=== PATIENT | male | born 1960 | race Two or more races ===

== ENCOUNTER 2022-08-15 11:41 | Inpatient (IN) | payer MEDICAID ==
[2022-08-15] VITALS (10 sets, daily range): BP systolic 98–117; BP diastolic 58–79
[~2022-08-15] VITALS: Ht 162.6 cm; Wt 61.0 kg
[2022-08-15] MEDS ORDERED: ASPIRIN 325 MG TABLET PO ONE (12:00)
[2022-08-15] MEDS ORDERED: MIDAZOLAM HCL 2 MG/2 ML VIAL IVP ONE (12:00)
[2022-08-15] MEDS ORDERED: FentaNYL CITRATE PF 100 MCG/2 ML VIAL IVP ONE (12:00)
[2022-08-15 12:15] LABS: BASOPHILS % (AUTO) 0.4 % (0.0-2.0); EOSINOPHILS % (AUTO) 0.1 % (1.0-6.0); HEMATOCRIT 44.4 % (41-53); HEMOGLOBIN 14.4 g/dL (13.5-17.5); LYMPHOCYTES # (AUTO) 1.3 K/uL (1.0-4.8); LYMPHOCYTES % (AUTO) 10.1 % (22.0-44.0); MEAN CORPUSCULAR HEMOGLOBIN 32.6 pg (26.0-34.0); MEAN CORPUSCULAR HGB CONC 32.5 G/dL (31.0-37.0); MEAN CORPUSCULAR VOLUME 101 fL (80-100); MONOCYTES # (AUTO) 1.1 K/uL (0.1-1.0); MONOCYTES % (AUTO) 8.8 % (2.0-9.0); NEUTROPHILS # (AUTO) 10.3 K/uL (1.8-7.7); NEUTROPHILS % (AUTO) 80.6 % (40.0-70.0); PLATELET COUNT (AUTO) 160 K/uL (150-450); RED BLOOD CELL COUNT(AUTO) 4.42 MIL/uL (4.50-5.90); RED CELL DISTRIBUTION WIDTH 12.7 % (11.5-14.5)
[2022-08-15] MEDS ORDERED: SODIUM CHLORIDE 0.9% 1,000 ML IV ONE (12:15)
[2022-08-15 12:25] LABS: CALCIUM, TOTAL 9.9 mg/dL (8.8-10.5); CREATININE 1.59 mg/dL (0.60-1.30); POTASSIUM 4.5 mmol/L (3.5-5.1)
[2022-08-15 12:25] LABS: COVID AG,FIA SOURCE NASOPHARYNGEAL
[2022-08-15 12:32] LABS: D-DIMER 1.17 mg/L FEU (0.00-0.50); INR 1.1 (0.9-1.1); PROTHROMBIN TIME 11.4 SEC (9.4-11.6)
[2022-08-15 12:51] LABS: ALBUMIN 3.2 g/dL (3.4-5.0); TOTAL PROTEIN, SERUM 8.9 g/dL (6.4-8.2)
[2022-08-15] MEDS ORDERED: HEPARIN SODIUM 25000 UNITS/D5W 250 ML IV PRN (13:00)
[2022-08-15] MEDS ORDERED: HEPARIN SODIUM,PORCINE 5,000 UNITS/ML VIAL IVP PRN ×3 (13:00→15:45)
[2022-08-15] MEDS ORDERED: MORPHINE SULFATE 2 MG/ML SYRINGE IVP PRN (13:15)
[2022-08-15] MEDS ORDERED: DEXTROSE 50%-WATER 25 GM/50 ML SYRINGE IVP PRN (13:15)
[2022-08-15] MEDS ORDERED: ONDANSETRON HCL 4 MG/2 ML VIAL IVP PRN (13:15)
[2022-08-15] MEDS ORDERED: ALBUTEROL SULFATE 2.5 MG/0.5 ML NEB SOLUTION NEB PRN (13:15)
[2022-08-15] MEDS ORDERED: BISACODYL 10 MG RECTAL RECTAL SUPPOSITORY PR PRN (13:15)
[2022-08-15] MEDS ORDERED: NITROGLYCERIN 0.4 MG SUBLINGUAL TABLET #25 SL PRN (13:15)
[2022-08-15] MEDS ORDERED: IPRATROPIUM BROMIDE 0.5 MG/2.5 ML NEB SOLUTION NEB PRN (13:15)
[2022-08-15] MEDS ORDERED: HEPARIN SODIUM,PORCINE 5,000 UNITS/ML VIAL IVP ONE (13:15)
[2022-08-15] MEDS ORDERED: DOCUSATE SODIUM 100 MG CAPSULE PO PRN (13:15)
[2022-08-15] MEDS ORDERED: SODIUM CHLORIDE 0.9% 0 ML ONE (13:18)
[2022-08-15] MEDS ORDERED: IOHEXOL 300 MG/ML 100 ML VIAL ONE ×2 (13:18→13:37)
[2022-08-15] MEDS ORDERED: LIDOCAINE/PF 1% 30 ML VIAL ONE (13:37)
[2022-08-15] MEDS ORDERED: HEPARIN SODIUM 1000 UNITS/NS 1,000 ML ONE (13:37)
[2022-08-15] MEDS ORDERED: NITROGLYCERIN 50 MG/D5% WATER 250 ML ONE (13:37)
[2022-08-15] MEDS ORDERED: SODIUM BICARBONATE 50 MEQ/50 ML VIAL ONE (13:37)
[2022-08-15] MEDS ORDERED: VERAPAMIL HCL 2.5 MG/ML 2 ML VIAL ONE (13:37)
[2022-08-15] MEDS ORDERED: PHENYLEPHRINE HCL 10 MG/ML VIAL IVP ONE (14:04)
[2022-08-15] MEDS ORDERED: HEPARIN SODIUM,PORCINE 1,000 UNITS/ML 10 ML VIAL IVP ONE (14:04)
[2022-08-15] MEDS ORDERED: 0.9% SODIUM CHLORIDE 10 ML VIAL IVP ONE (14:04)
[2022-08-15 14:11] LABS: HEMOGLOBIN A1C 9.4 % (3.8-5.6)
[2022-08-15 14:13] LABS: FREE T4 (FREE THYROXINE) 1.67 ng/dL (0.76-1.46); THYROID STIMULATING HORMONE 2.84 uIU/mL (0.36-3.74)
[2022-08-15] MEDS ORDERED: LIDOCAINE 1% 30 ML/SOD BICARB 8.4% 4 ML SQ ONE (14:15)
[2022-08-15] MEDS ORDERED: SODIUM CHLORIDE 0.9% 500 ML IV ONE (14:15)
[2022-08-15] MEDS ORDERED: IOHEXOL 300 MG/ML 100 ML VIAL IARTER ONE (14:15)
[2022-08-15] MEDS ORDERED: HEPARIN SODIUM,PORCINE 1,000 UNITS/ML 10 ML VIAL IARTER ONE (14:15)
[2022-08-15] MEDS ORDERED: HEPARIN SODIUM 1000 UNITS/NS 1,000 ML IARTER ONE (14:15)
[2022-08-15] MEDS ORDERED: NITROGLYCERIN/D5W 50 MG/250 ML IV BOTTLE ICOR ONE (14:15)
[2022-08-15] MEDS ORDERED: PHENYLEPHRINE 200 MG/D5%-WATER 250 ML IV ONE (14:26)
[2022-08-15] MEDS: VERAPAMIL HCL 2.5 MG/ML 2 ML VIAL IARTER ONE ×2 (14:43→14:49)
[2022-08-15] MEDS ORDERED: HEPARIN SODIUM 1000 UNITS/NS 500 ML ONE (14:57)
[2022-08-15] MEDS ORDERED: VERAPAMIL HCL 2.5 MG/ML 2 ML VIAL ICOR ONE (15:00)
[2022-08-15] MEDS ORDERED: EPTIFIBATIDE 2 MG/ML 10 ML VIAL IVP ONE (15:45)
[2022-08-15] MEDS: EPTIFIBATIDE 75 MG/ISO-OSM 100 ML IV PRN (17:23)
[2022-08-15] MEDS: HEPARIN SODIUM 25000 UNITS/D5W 250 ML IV PRN (17:26)
[2022-08-15] MEDS: ATORVASTATIN CALCIUM 40 MG TABLET PO SCH (17:53)
[2022-08-15] MEDS: PANTOPRAZOLE SODIUM 40 MG DR TABLET PO SCH (17:54)
[2022-08-15] MEDS: INSULIN LISPRO 100 UNITS/ML SQ PRN ×2 (18:02→21:43)
[2022-08-15] MEDS: ACETAMINOPHEN 325 MG TABLET PO PRN (21:41)
[2022-08-15 22:12] LABS: GLUCOSE,POINT OF CARE 193 MG/DL (70-110)
[2022-08-16] VITALS (8 sets, daily range): BP systolic 92–137; BP diastolic 52–89
[2022-08-16] MEDS: HEPARIN SODIUM,PORCINE 5,000 UNITS/ML VIAL IVP PRN ×2 (00:11→07:54)
[2022-08-16] MEDS ORDERED: PHENYLEPHRINE 200 MG/D5%-WATER 250 ML IV PRN (01:45)
[2022-08-16 05:26] LABS: GLUCOSE,POINT OF CARE 174 MG/DL (70-110)
[2022-08-16 06:21] LABS: APPEARANCE,URINE CLEAR (CLEAR); BILIRUBIN,URINE NEGATIVE (NEGATIVE); GLUCOSE, URINE (UA) 70-100 mg/dL (NEGATIVE); LEUKOCYTE ESTERASE ,URINE SMALL (NEGATIVE); NITRATE,URINE NEGATIVE (NEGATIVE); OCCULT BLOOD,URINE LARGE (NEGATIVE); PH,URINE 5.5 (5.0-8.0); PROTEIN,URINE 30-70 mg/dL (NEGATIVE); SPECIFIC GRAVITIY, URINE 1.041 (1.003-1.030)
[2022-08-16 06:28] LABS: AMPHET/METH SCREEN,URINE NEGATIVE (NEGATIVE); BARBITURATE SCREEN, URINE NEGATIVE (NEGATIVE); BENZODIAZEPINES SCREEN,URINE POSITIVE (NEGATIVE); CANNABINOID SCREEN,URINE NEGATIVE (NEGATIVE); COCAINE SCREEN,URINE NEGATIVE (NEGATIVE); METHADONE SCREEN, URINE NEGATIVE (NEGATIVE); OPIATE SCREEN,URINE NEGATIVE (NEGATIVE)
[2022-08-16 06:31] LABS: INFLUENZA TYPE A NEGATIVE FOR TYPE A (NEGATIVE); INFLUENZA TYPE B NEGATIVE FOR TYPE B (NEGATIVE)
[2022-08-16 06:37] LABS: PHENCYCLIDINE SCREEN,URINE NEGATIVE (NEGATIVE)
[2022-08-16 06:45] LABS: RBC,URINE 26-50 /HPF (0-2)
[2022-08-16 06:46] LABS: BACTERIA,URINE Rare /HPF (None Seen)
[2022-08-16] MEDS: INSULIN LISPRO 100 UNITS/ML SQ PRN ×4 (06:55→21:27)
[2022-08-16 07:11] LABS: BASOPHILS % (AUTO) 0.8 % (0.0-2.0); EOSINOPHILS % (AUTO) 0.1 % (1.0-6.0); HEMATOCRIT 44.2 % (41-53); HEMOGLOBIN 14.8 g/dL (13.5-17.5); LYMPHOCYTES # (AUTO) 1.7 K/uL (1.0-4.8); LYMPHOCYTES % (AUTO) 12.1 % (22.0-44.0); MEAN CORPUSCULAR HEMOGLOBIN 33.3 pg (26.0-34.0); MEAN CORPUSCULAR HGB CONC 33.5 G/dL (31.0-37.0); MEAN CORPUSCULAR VOLUME 99 fL (80-100); MONOCYTES # (AUTO) 1.2 K/uL (0.1-1.0); MONOCYTES % (AUTO) 8.8 % (2.0-9.0); NEUTROPHILS # (AUTO) 10.8 K/uL (1.8-7.7); NEUTROPHILS % (AUTO) 78.2 % (40.0-70.0); RED BLOOD CELL COUNT(AUTO) 4.45 MIL/uL (4.50-5.90); RED CELL DISTRIBUTION WIDTH 12.6 % (11.5-14.5)
[2022-08-16 07:14] LABS: ALANINE AMINOTRANSFERASE 38 U/L (12-78); ALBUMIN 2.8 g/dL (3.4-5.0); ALKALINE PHOSPHATASE 99 U/L (46-116); ANION GAP 12 mmol/L (8-16); ASPARTATE AMINOTRANSFERASE 120 U/L (15-37); BILIRUBIN,TOTAL 1.4 mg/dL (0.1-1.0); CALCIUM, TOTAL 9.4 mg/dL (8.8-10.5); CARBON DIOXIDE 26 mmol/L (22-29); CHLORIDE 94 mmol/L (98-107); CHOLESTEROL 182 mg/dL (131-200); GLUCOSE,RANDOM 180 mg/dL (70-110); HDL CHOLESTEROL 46 mg/dL (40-60); LDL CHOL (CALC.) 109 mg/dL (0-130); POTASSIUM 3.2 mmol/L (3.5-5.1); SODIUM SERUM 132 mmol/L (136-145); TOTAL PROTEIN, SERUM 8.5 g/dL (6.4-8.2); TRIGLYCERIDES 136 mg/dL (15-150); UREA NITROGEN, BLOOD 32 mg/dL (7-18)
[2022-08-16 07:17] LABS: GLOMERULAR FILTR. RATE CALC > 60 mL/min (>60)
[2022-08-16] MEDS: ATORVASTATIN CALCIUM 40 MG TABLET PO SCH (08:17)
[2022-08-16] MEDS: PANTOPRAZOLE SODIUM 40 MG DR TABLET PO SCH (08:17)
[2022-08-16] MEDS: ASPIRIN 81 MG CHEWABLE TABLET PO SCH (08:17)
[2022-08-16] MEDS: ACETAMINOPHEN 325 MG TABLET PO PRN ×2 (08:18→17:12)
[2022-08-16] MEDS: EPTIFIBATIDE 75 MG/ISO-OSM 100 ML IV PRN (08:22)
[2022-08-16 08:31] LABS: GLUCOSE,POINT OF CARE 190 MG/DL (70-110)
[2022-08-16 09:45] LABS: PLATELET COUNT (AUTO) 187 K/uL (150-450)
[2022-08-16] MEDS ORDERED: POTASSIUM CHL 10 MEQ/WATER 50 ML IV PRN ×2 (10:30→11:30)
[2022-08-16] MEDS ORDERED: SODIUM CHLORIDE 0.9% 250 ML IV ONE (10:37)
[2022-08-16] MEDS ORDERED: POTASSIUM CHLORIDE 20 MEQ ER TABLET PO PRN (11:30)
[2022-08-16 12:06] LABS: GLUCOSE,POINT OF CARE 192 MG/DL (70-110)
[2022-08-16] MEDS: HEPARIN SODIUM 25000 UNITS/D5W 250 ML IV PRN (12:18)
[2022-08-16] MEDS ORDERED: CefTRIAXone 1 GM/DEXTROSE 50 ML IV SCH (16:00)
[2022-08-16] MEDS: MetroNIDAZOLE 500 MG/NACL 100 ML IV SCH (17:09)
[2022-08-16 17:51] LABS: GLUCOSE,POINT OF CARE 163 MG/DL (70-110)
[2022-08-16] MEDS: DOXYCYCLINE HYCLATE 100 MG in DEXTROSE 5%-WATER 100 ML IV SCH (18:49)
[2022-08-16 23:30] LABS: GLUCOSE,POINT OF CARE 150 MG/DL (70-110)
[2022-08-17] VITALS: BP 127/74
[2022-08-17 04:00] VITALS: BP 153/75
[2022-08-17] MEDS: MetroNIDAZOLE 500 MG/NACL 100 ML IV SCH (05:30)
[2022-08-17] MEDS: EPTIFIBATIDE 75 MG/ISO-OSM 100 ML IV PRN (05:31)
[2022-08-17 05:48] LABS: BASOPHILS % (AUTO) 0.5 % (0.0-2.0); EOSINOPHILS % (AUTO) 0.4 % (1.0-6.0); HEMATOCRIT 42.7 % (41-53); HEMOGLOBIN 14.5 g/dL (13.5-17.5); LYMPHOCYTES # (AUTO) 1.1 K/uL (1.0-4.8); LYMPHOCYTES % (AUTO) 10.6 % (22.0-44.0); MEAN CORPUSCULAR HEMOGLOBIN 33.1 pg (26.0-34.0); MEAN CORPUSCULAR HGB CONC 33.9 G/dL (31.0-37.0); MEAN CORPUSCULAR VOLUME 98 fL (80-100); MONOCYTES # (AUTO) 0.9 K/uL (0.1-1.0); MONOCYTES % (AUTO) 8.8 % (2.0-9.0); NEUTROPHILS % (AUTO) 79.7 % (40.0-70.0); RED BLOOD CELL COUNT(AUTO) 4.36 MIL/uL (4.50-5.90); RED CELL DISTRIBUTION WIDTH 12.7 % (11.5-14.5)
[2022-08-17 06:03] LABS: ALANINE AMINOTRANSFERASE 24 U/L (12-78); ALBUMIN 2.4 g/dL (3.4-5.0); ALKALINE PHOSPHATASE 116 U/L (46-116); ANION GAP 8 mmol/L (8-16); ASPARTATE AMINOTRANSFERASE 73 U/L (15-37); BILIRUBIN,TOTAL 0.8 mg/dL (0.1-1.0); CALCIUM, TOTAL 9.1 mg/dL (8.8-10.5); CARBON DIOXIDE 28 mmol/L (22-29); CHLORIDE 96 mmol/L (98-107); CREATININE 1.02 mg/dL (0.60-1.30); GLUCOSE,RANDOM 180 mg/dL (70-110); POTASSIUM 3.8 mmol/L (3.5-5.1); SODIUM SERUM 132 mmol/L (136-145); TOTAL PROTEIN, SERUM 7.7 g/dL (6.4-8.2); UREA NITROGEN, BLOOD 26 mg/dL (7-18)
[2022-08-17] MEDS: ACETAMINOPHEN 325 MG TABLET PO PRN (06:03)
[2022-08-17 06:06] LABS: PLATELET COUNT (AUTO) 118 K/uL (150-450)
[2022-08-17 06:08] LABS: GLOMERULAR FILTR. RATE CALC > 60 mL/min (>60)
[2022-08-17] MEDS: DOXYCYCLINE HYCLATE 100 MG in DEXTROSE 5%-WATER 100 ML IV SCH (06:10)
[2022-08-17] MEDS: HEPARIN SODIUM 25000 UNITS/D5W 250 ML IV PRN (06:11)
[2022-08-17] MEDS: INSULIN LISPRO 100 UNITS/ML SQ PRN ×2 (06:12→11:33)
[2022-08-17 06:26] LABS: GLUCOSE,POINT OF CARE 158 MG/DL (70-110)
[2022-08-17 08:00] VITALS: BP 86/59
[2022-08-17] MEDS: ASPIRIN 81 MG CHEWABLE TABLET PO SCH (08:06)
[2022-08-17] MEDS: ATORVASTATIN CALCIUM 40 MG TABLET PO SCH (08:06)
[2022-08-17] MEDS: PANTOPRAZOLE SODIUM 40 MG DR TABLET PO SCH (08:06)
[2022-08-17] MEDS ORDERED: FUROSEMIDE 20 MG/2 ML VIAL IVP SCH (09:45)
[2022-08-17 12:00] VITALS: BP 111/65
[2022-08-17 14:46] LABS: GLUCOSE,POINT OF CARE 175 MG/DL (70-110)
== END 2022-08-17 14:05 | disposition short-term general hospital (02) | DRG 190 ==
LOC: EMS 11:41 → ICU 16:06
PROVIDERS: ADMIT Internal Medicine; ATTEND Internal Medicine
PROC: 4A023N7 Measurement of Cardiac Sampling and Pressure, Left Heart, Percutaneous Approach (ICD-10-PCS; principal; 2022-08-15)
PROC: 5A02210 Assistance with Cardiac Output using Balloon Pump, Continuous (ICD-10-PCS; 2022-08-15)
PROC: B2111ZZ Fluoroscopy of Multiple Coronary Arteries using Low Osmolar Contrast (ICD-10-PCS; 2022-08-15)
PROC: B2151ZZ Fluoroscopy of Left Heart using Low Osmolar Contrast (ICD-10-PCS; 2022-08-15)
PROC: B41F1ZZ Fluoroscopy of Right Lower Extremity Arteries using Low Osmolar Contrast (ICD-10-PCS; 2022-08-15)
PROC: 0T9B70Z Drainage of Bladder with Drainage Device, Via Natural or Artificial Opening (ICD-10-PCS; 2022-08-15)
DX: I21.4 Non-ST elevation (NSTEMI) myocardial infarction (principal); R57.0 Cardiogenic shock; I11.0 Hypertensive heart disease with heart failure; I50.23 Acute on chronic systolic (congestive) heart failure; N17.9 Acute kidney failure, unspecified; R65.10 Systemic inflammatory response syndrome (SIRS) of non-infectious origin without acute organ dysfunction; E11.9 Type 2 diabetes mellitus without complications; E03.9 Hypothyroidism, unspecified; E78.5 Hyperlipidemia, unspecified; Z20.822 Contact with and (suspected) exposure to COVID-19; F10.10 Alcohol abuse, uncomplicated; F17.210 Nicotine dependence, cigarettes, uncomplicated; I25.10 Atherosclerotic heart disease of native coronary artery without angina pectoris; Z91.14 Patient's other noncompliance with medication regimen; Z79.899 Other long term (current) drug therapy
CPT/HCPCS: 33967; 71045; 76000; 80053; 80061; 81001; 82550; 82962; 83036; 83735; 83880; 84132; 84145; 84439; 84443; 84484; 85025; 85379; 85610; 85730; 87040; 87081; 87804; 93005; 93308; 93880; 99291; G0378; G0480; J0696; J1327; J1644; J1940; J2250; J2370; J3010; J3480; J3490; J7050; J7060; Q9967; 36415-L1; 36415-TC; Z7610